=== PATIENT | female | born 1985 | race Caucasian/White ===

== ENCOUNTER → 2024-01-18 13:35 | Outpatient (BNVA) | payer BC, SELFPAY | PROVIDERS: Family Provider Family Medicine; PCP Family Medicine; Visit Provider Nurse Practitioner Women's Health | DX: D25.9 Leiomyoma of uterus, unspecified (principal) | CPT/HCPCS: 76830 ==

== ENCOUNTER → 2024-02-29 15:06 | Outpatient (BNVA) | payer BC, SELFPAY | PROVIDERS: Family Provider Family Medicine; PCP Family Medicine; Visit Provider Obstetrics & Gynecology | DX: Z01.419 Encounter for gynecological examination (general) (routine) without abnormal findings (principal) | CPT/HCPCS: 87624 ==

== ENCOUNTER 2024-04-07 05:41 | Day surgery (SDC) | payer BC, SELFPAY ==
[2024-04-07] VITALS (10 sets, daily range): BP systolic 107–139; BP diastolic 59–91; PULSE 67–81; RESP 12–17; TEMP 36.2–36.6; O2SAT 93–100
--- NOTE | 2024-04-07 06:08 | W.PM.OPSFHP ---
Same Day Surgery H&P Indication for Procedure/HPI DATE OF PROCEDURE: April 07, 2024 CHIEF COMPLAINT/INDICATIONFOR SURGICAL PROCEDURE: menometrorrhagia PREOP DIAGNOSIS: abnormal uterine bleeding PLANNED PROCEDURE: Operation Date: 04/07/24 07:00 Proposed Procedures p Hysteroscopy w/ Endometrial Sampling 75150, 14037, N94.6, N92.0(Not Applicable) - Colton Elizondo MD s Poylpectomy(Not Applicable) - Colton Elizondo MD s Endometriosis Cauterization Endometrial Ablation(Not Applicable) - Colton Elizondo MD 38 y.o. h/o heavy and prolonged periods with anemia now scheduled for hysteroscopy, endometrial sampling / polypectomy, and endometrial ablation Medications/Allergies* Home Medications ?Medication ?Instructions ?Recorded ?Confirmed ?Type No Known Home Medications 12/29/23 02/29/24 History Allergies/Adverse Reactions Allergy/AdvReac Type Severity Reaction Status Date / Time No Known Allergies Allergy Verified 02/29/24 13:01 Pertinent History/Comorbid Conditions* Family History (Updated 01/26/24 @ 08:24 by Ana Araujo [employer]CHIT[employer]) Diabetes Grandmother Mother Breast cancer Grandmother Hypertension Grandmother Mother Denies family history of Colon cancer Ovarian cancer Heart disease Uterine cancer Thyroid disease Stroke Social History Smoking and tobacco/nicotine status: never used tobacco/nicotine Pertinent Exam Findings alert, oriented x 3, clear to auscultation bilaterally and regular rate & rhythm Recommendations Surgery/Procedure today Coding Level of Care Code Acute Code for Chg Fwd Time Spent (min) 20
[2024-04-07 06:20] LABS: OR HCG Qualitative Urine Negative (Negative)
[2024-04-07] MEDS: sodium chloride 0.9% 1,000 ML 30 ML IV (06:23)
--- NOTE | 2024-04-07 06:51 | W.PM.OPSUD ---
Surgery/Procedure H&P Update DATE OF PROCEDURE: April 07, 2024 DATE H&P PERFORMED: 04/07/24 H&P UPDATE INFORMATION: I have reviewed H&P completed within last 30 days, I have examined patient prior to procedure and No changes to prior documentation PREOP DIAGNOSIS: abnormal uterine bleeding PLANNED PROCEDURE: Operation Date: 04/07/24 07:00 Proposed Procedures p Hysteroscopy w/ Endometrial Sampling 72382, 50812, N94.6, N92.0(Not Applicable) - Colton Elizondo MD s Poylpectomy(Not Applicable) - Colton Elizondo MD s Endometriosis Cauterization Endometrial Ablation(Not Applicable) - Colton Elizondo MD
--- NOTE | 2024-04-07 06:53 | ANES.PREANE2 ---
Pre-Anesthetic Assessment Height/Weight: Height 1.63 m Temp Pulse Resp BP Pulse Ox O2 Del Method 97.4 F L 75 17 136/65 100 Room Air 04/07/24 06:10 04/07/24 06:10 04/07/24 06:10 04/07/24 06:10 04/07/24 06:10 04/07/24 06:10 Preop Diagnosis: abnormal uterine bleeding Operation Date: 04/07/24 07:00 Proposed Procedures p Hysteroscopy w/ Endometrial Sampling 40172, 88621, N94.6, N92.0(Not Applicable) - Colton Elizondo MD s Poylpectomy(Not Applicable) - Colton Elizondo MD s Endometriosis Cauterization Endometrial Ablation(Not Applicable) - Colton Elizondo MD Familial anesthetic complications: None Was Beta Gregorio taken within 24 hours: N/A Was Clonidine taken within 24 hours: N/A Last intake: Intake Last Liquid Date 04/06/24 Last Liquid Time 21:00 Last Solid Date 04/06/24 Last Solid Time 18:00 Social No alcohol and No tobacco Exam alert, oriented x 3, clear to auscultation bilaterally and regular rate & rhythm Airway Mallampati: Class I Dentition: full and other (missing) Anesthetic Plan ASA status: 1 Anesthesia: General Risk of > 500 ml blood loss (7ml/kg in children): No Medications/Allergies Home Medications ?Medication ?Instructions ?Recorded ?Confirmed ?Last Taken ?Type No Known Home Medications 12/29/23 04/07/24 Unknown History Allergies Allergy/AdvReac Type Severity Reaction Status Date / Time No Known Allergies Allergy Verified 02/29/24 13:01 [facility] Anesthesia Family History Grandmother Breast cancer Diabetes Hypertension Mother Diabetes Hypertension Denies family history of Colon cancer Ovarian cancer Heart disease Uterine cancer Thyroid disease Stroke Social History Smoking and tobacco/nicotine status: never used tobacco/nicotine Data Anesthesia Cardiac Studies: No Data to Display
[2024-04-07] MEDS: ketorolac 30 mg/mL INJ IVP (09:14)
--- NOTE | 2024-04-07 09:30 | PM.OP ---
Operative Report Date of procedure: April 07, 2024 Pre-op diagnosis: abnormal uterine bleeding, menorrhagia Post-op diagnosis: abnormal uterine bleeding, menorrhagia marked cervicitis Post-op findings: Normal endometrial cavity No endometrial polyps or fibroids Minimal endometrial tissue Global endometrial ablation following procedure Inflamed cervix Procedure done: hysteroscopy curettage of uterus endometrial ablation with Novasure device biopsies of cervix Implants: none Specimens removed/disposition: endometrial curettings cervical biopsies Surgeon: Colton Elizondo MD Anesthesia: MAC Estimated blood loss (mL): 5 Complications: none Findings: Normal endometrial cavity No endometrial polyps or fibroids Minimal endometrial tissue Global endometrial ablation following procedure Inflamed cervix Condition: stable Disposition: PACU Brief History: 39 y.o. with history heavy menstrual bleeding Procedure: Informed consent was obtained. The patient was taken to the OR and placed on the table. General endotracheal anesthesia was induced. The patient was then placed in dorsolithotomy position. The perineum were then prepped and draped in the usual fashion. A speculum was placed in the vagina. The anterior lip of the cervix was grasped with a sharp-toothed tenaculum. The uterus was sounded to 8 cm. The cervix was serially dilated with Hegar dilators. . A hysteroscope was placed into the endometrial cavity. The endometrial cavity was seen to be normal. There were no polyps or fibroids. There was minimal endometrial tissue. The hysteroscope was then removed. Endometrial curettage was done with a sharp curette. Endometrial tissue was sent to pathology. The Novasure device was then primed and inserted into the endometrial cavity. The cervical occlusion sleeve was advanced. Cavity integrity test was done. The device was activated for 30 seconds. The Novasure device was then removed. Repeat hysteroscopy showed an intact endometrial cavity with adequate global endometrial ablation. All instruments were then removed. The sharp-toothed tenaculum was removed. There was no bleeding from the endometrial cavity or cervix. The cervix was noted to be markedly inflamed. Cervical biopsies were obtained and sent to pathology. No bleeding was seen. The patient was then placed supine and awakened and taken to the PACU. Postop condition: stable EBL: 5 cc Sponge and instruments counts were normal x 2 Complications: none
--- NOTE | 2024-04-07 09:35 | ANE.PACU2 ---
Inpatient post-anesthesia follow up: Airway intact: Yes Vital signs: Temperature 97.6 F Pulse Rate 75 Respiratory Rate 16 Blood Pressure 132/91 Pulse Oximetry 98 Oxygen Delivery Me thod Room Air Oxygen Flow Rate Fraction of Inspir ed Oxygen Hydration adequate: Yes Nausea and vomiting: No Pain level: 1 Mental status: Baseline
== END 2024-04-07 09:39 | disposition home or self-care (01) ==
PROVIDERS: Anesthesiology; PCP Family Medicine; Visit Provider Obstetrics & Gynecology
PROC: 0UJD8ZZ Inspection of Uterus and Cervix, Via Natural or Artificial Opening Endoscopic (ICD-10-PCS; CPT 58555; principal; 2024-04-07 07:00)
PROC: (CPT 58563; 2024-04-07 07:00)
PROC: (CPT 58999; 2024-04-07 07:00)
DX: N72 Inflammatory disease of cervix uteri (principal); N93.9 Abnormal uterine and vaginal bleeding, unspecified; N92.0 Excessive and frequent menstruation with regular cycle
CPT/HCPCS: 58563; 81025; 88305; 88342; J1100; J1200; J1885; J2250; J2405; J2704; J3010; J7030